=== PATIENT | male | born 1970 | race Caucasian/White ===

== ENCOUNTER 2024-09-03 08:44 | Day surgery (SDC) | payer OTHER, SELFPAY ==
[2024-08-29 07:36] VITALS: BMI 40.9
--- NOTE | 2024-08-30 14:41 | P.CONAN_ITS ---
Documented by User: Moriah Limon NP 08/30/24 14:42 HPI - Anesthesia Eval Consult details Narrative: 53yo M for Left Cataract Extraction IOL Insertion No previous cataract on record PMFSH Past Medical History Medical History Back pain Insomnia Sleep apnea Rhinitis medicamentosa HTN (hypertension) Nocturnal hypoxemia Diabetes Morbid obesity with BMI of 40.0-44.9, adult Hyperlipidemia LDL goal <100 Surgical History Surgical History Hx of cornea transplant Social History Social History Are you a primary personal care service provider to a significant other at home: No Do you presently have visiting nurse or other home services: No Patient Tobacco Use Status: Never used Tobacco Use of substances other than those prescribed or required for medical reasons: No Advance Directives: No Advance Directives Information Provided: Yes Advance Directives on File: No Recently lost weight without trying: No Eating poorly because of decreased appetite: No Nutrition Risks: No Nutritional Risk Meds Allergies Allergy/AdvReac Type Severity Reaction Status Date / Time dog dander Allergy Unknown Verified 09/03/24 09:32 Home Medications ?Medication ?Instructions ?Recorded ?Confirmed ?Last Taken ?Type Lactobacillus rhamnosus GG 10 1 cap PO DAILY 08/29/24 08/29/24 Unknown History billion cell-inulin 200 mg capsule ([facility] [place]) atorvastatin 20 mg tablet 20 mg PO QPM 08/29/24 08/29/24 Unknown History cetirizine 10 mg tablet 10 mg PO DAILY 08/29/24 08/29/24 Unknown History ciclopirox 8 % topical solution 1 appl topical DAILY 08/29/24 08/29/24 Unknown History diclofenac sodium 75 mg 75 mg PO BID 08/29/24 08/29/24 Unknown History tablet,delayed release diphenoxylate-atropine 2.5 1 tab PO QID PRN Diarrhea 08/29/24 08/29/24 Unknown History mg-0.025 mg tablet epinephrine 0.3 mg/0.3 mL 0.3 mg IM NEEDED anaphylaxis 08/29/24 08/29/24 Unknown History injection, auto-injector meclizine 25 mg tablet 25 mg PO TID PRN Dizziness 08/29/24 08/29/24 Unknown History metformin 500 mg tablet,extended 500 mg PO BID 08/29/24 08/29/24 Unknown History release 24 hr trazodone 50 mg tablet 50 - 100 mg PO BEDTIME 08/29/24 08/29/24 Unknown History triamcinolone acetonide 55 mcg 2 spray intranasal DAILY 08/29/24 08/29/24 Unknown History nasal spray aerosol Exam Height,Weight and Vital Signs: Height 5 ft 8 in Weight 122 kg Assessment and Plan Assessment Anesthesia Assessment: Chart Reviewed Documented by User: Cammy Oconnor MD 09/03/24 09:37 [facility] Past Medical History Medical History Back pain Insomnia Sleep apnea Rhinitis medicamentosa HTN (hypertension) Nocturnal hypoxemia Diabetes Morbid obesity with BMI of 40.0-44.9, adult Hyperlipidemia LDL goal <100 Family History Family history of problems with anesthesia: No Surgical History Surgical History Hx of cornea transplant History of Problems with Anesthesia: No Social History Social History Are you a primary personal care service provider to a significant other at home: No Do you presently have visiting nurse or other home services: No Patient Tobacco Use Status: Never used Tobacco Use of substances other than those prescribed or required for medical reasons: No Advance Directives: No Advance Directives Information Provided: Yes Advance Directives on File: No Recently lost weight without trying: No Eating poorly because of decreased appetite: No Nutrition Risks: No Nutritional Risk Meds Allergies Allergy/AdvReac Type Severity Reaction Status Date / Time dog dander Allergy Unknown Verified 09/03/24 09:32 Home Medications ?Medication ?Instructions ?Recorded ?Confirmed ?Last Taken ?Type Lactobacillus rhamnosus GG 10 1 cap PO DAILY 08/29/24 08/29/24 Unknown History billion cell-inulin 200 mg capsule ([facility] [place]) atorvastatin 20 mg tablet 20 mg PO QPM 08/29/24 08/29/24 Unknown History cetirizine 10 mg tablet 10 mg PO DAILY 08/29/24 08/29/24 Unknown History ciclopirox 8 % topical solution 1 appl topical DAILY 08/29/24 08/29/24 Unknown History diclofenac sodium 75 mg 75 mg PO BID 08/29/24 08/29/24 Unknown History tablet,delayed release diphenoxylate-atropine 2.5 1 tab PO QID PRN Diarrhea 08/29/24 08/29/24 Unknown History mg-0.025 mg tablet epinephrine 0.3 mg/0.3 mL 0.3 mg IM NEEDED anaphylaxis 08/29/24 08/29/24 Unknown History injection, auto-injector meclizine 25 mg tablet 25 mg PO TID PRN Dizziness 08/29/24 08/29/24 Unknown History metformin 500 mg tablet,extended 500 mg PO BID 08/29/24 08/29/24 Unknown History release 24 hr trazodone 50 mg tablet 50 - 100 mg PO BEDTIME 08/29/24 08/29/24 Unknown History triamcinolone acetonide 55 mcg 2 spray intranasal DAILY 08/29/24 08/29/24 Unknown History nasal spray aerosol Exam Airway Mallampati Class: III TM Dist: <=3cm Neck ROM: Full Heart: rrr Lungs: cta Assessment and Plan Assessment Anesthesia Assessment: Anesthesia Plan Discussed Final Anesthetic Review Family History of Problems with Anesthesia: No History of Problems with Anesthesia: No NPO: Yes ASA Class: III Final Preanesthetic Review: No Changes in Pt Med Stat, Meds/Allgs Chart Reviewed, Consent Obtained/Reviewed and Anes Risks/Benef Reviewed Patient Risk: Intermediate Procedure Risk: Low Anesthetic Plan Anesthetic Plan: MAC: Disposition: Standard PACU
[2024-09-03] MEDS: Tetracaine HCl/PF 0.5% Oph Sol 4 ML DROPS 1 DROP EYE-LEFT (09:43)
[2024-09-03] MEDS: Cyclopentolate 1 % Ophth Sol 2 ML DRPBTL 1 DROP EYE-LEFT ×3 (09:45→09:56)
[2024-09-03] MEDS: Tropicamide 1 % Ophth Sol 3 ML BTL 1 DROP EYE-LEFT ×3 (09:47→09:57)
[2024-09-03] MEDS: Ketorolac Tromethamine 0.5% Op 5 ML DROPS 1 DROP EYE-LEFT ×3 (09:48→09:59)
[2024-09-03] MEDS: Phenylephrine HCL 2.5% Oph SoL 2 ML BOTTLE 1 DROP EYE-LEFT ×3 (09:49→10:00)
[2024-09-03 09:55] VITALS: BP 128/91; PULSE 90; RESP 15; TEMP 36.6; O2SAT 93
[2024-09-03] MEDS: Lactated Ringers 500 ML 50 ML IV (10:00)
--- NOTE | 2024-09-03 10:21 | MHC.SHP ---
Pre-Procedural Eval Section A - 24 Hr Update-Section A only Date of Service: 09/03/24 The patient is an INPATIENT: No Changes since office visit: No Cold of Flu in the past 2 weeks, No New Medical Problems, No Changes in Medication and No Patient answered all questions The patient has been examined within 24 hours of the surgical procedure. The History & Physical has been completed within 30 days and I have reviewed it.: Yes Section B - Complete if H&P > 30 days Chief Complaint: Age-related nuclear cataract, left eye Allergies: Allergies Allergy/AdvReac Type Severity Reaction Status Date / Time dog dander Allergy Unknown Verified 09/03/24 09:32 Plan Diagnosis/Plan: Unchanged I have reviewed the history and physical and performed a pertinent physical examination on my patient. No changes have occurred unless specified. Time Spent With Patient Time: Total time managing care of this patient today ____ minutes.
--- NOTE | 2024-09-03 10:21 | HO.PNOPHT ---
Ophthalmology Procedure Procedure Date of Service: 09/03/24 Ophthalmology Viscoelastic: Healon Duet Dual Pack Pro Ophthalmology Lenses: IOL Acrysof MP - MA60AC (18.5) Procedure Notes: PREOPERATIVE DIAGNOSIS: Decreased visual acuity left eye secondary to cataract POSTOPERATIVE DIAGNOSIS: Same PROCEDURE: Left cataract extraction with intraocular lens insertion SURGEON: Yovany Pendleton M.D. ANESTHESIA: Topical/MAC ESTIMATED BLOOD LOSS: None COMPLICATIONS: None After obtaining informed consent, the patient was brought to the operation room suite and placed in the supine position. After adequate sedation per anesthesia, topical drops of Tetracaine were given to the left eye. The eye was then prepped and draped in the usual sterile fashion. The operating room microscope was then positioned over the operative eye and a lid speculum placed. A paracentesis was created. Viscoelastic was then instilled into the anterior chamber. A three plane incision was then created temporally, utilizing a 2.85 mm keratome. Capsulotomy forceps were then utilized to create a circular tear capsulotomy. Hydrodissection and hydrodelineation were carried out until adequate mobilization of the nucleus occurred. Phacoemulsification was then utilized to remove the dense central nucleus followed by removal of the cortical material utilizing the automated aspiration irrigation unit. Viscoat elastic was instilled into the posterior capsular bag followed by placement of a posterior chamber intraocular lens without difficulty. The residual Viscoat elastic was then removed utilizing the automated IA machine. The wound was check and found to be watertight. The patient tolerated the procedure well and the lid speculum was removed. Intracameral injection of Vigamox 0.1 mL followed by a subtenon injection of Kenalog-40 0.2 mL were administered. The patient will be seen in the a.m.
[2024-09-03 10:33] LABS: Glucose, Whole Blood 145 mg/dL (60-115)
[2024-09-03 10:42] VITALS: BP 131/86; PULSE 88; RESP 19; TEMP 37.1; O2SAT 95
[2024-09-03 10:57] VITALS: BP 143/91; PULSE 92; RESP 16; TEMP 37.1; O2SAT 95
== END 2024-09-03 10:58 | disposition home or self-care (01) ==
PROVIDERS: PCP Internal Medicine; Visit Provider Ophthalmology
PROC: (CPT 66985; principal; 2024-09-03 11:00)
DX: H25.12 Age-related nuclear cataract, left eye (principal); H52.4 Presbyopia; H04.123 Dry eye syndrome of bilateral lacrimal glands; H52.31 Anisometropia; H43.393 Other vitreous opacities, bilateral; H35.09 Other intraretinal microvascular abnormalities; G47.33 Obstructive sleep apnea (adult) (pediatric); E11.9 Type 2 diabetes mellitus without complications; I10 Essential (primary) hypertension; E78.5 Hyperlipidemia, unspecified; Z79.84 Long term (current) use of oral hypoglycemic drugs; Z79.899 Other long term (current) drug therapy
CPT/HCPCS: 66984; 82947; J2250; J3301; V2630

== ENCOUNTER 2024-09-17 07:37 | Day surgery (SDC) | payer OTHER, SELFPAY ==
[2024-08-29 07:43] VITALS: BMI 40.9
[2024-09-17 07:54] VITALS: BP 155/89; PULSE 87; RESP 20; TEMP 36.9; O2SAT 94
[2024-09-17] MEDS: Tetracaine HCl/PF 0.5% Oph Sol 4 ML DROPS 1 DROP EYE-RIGHT (08:01)
[2024-09-17] MEDS: Lactated Ringers 500 ML 50 ML IV (08:01)
[2024-09-17] MEDS: Tropicamide 1 % Ophth Sol 3 ML BTL 1 DROP EYE-RIGHT ×3 (08:02→08:05)
[2024-09-17] MEDS: Phenylephrine HCL 2.5% Oph SoL 2 ML BOTTLE 1 DROP EYE-RIGHT ×3 (08:02→08:05)
[2024-09-17] MEDS: Ketorolac Tromethamine 0.5% Op 5 ML DROPS 1 DROP EYE-RIGHT ×3 (08:02→08:05)
[2024-09-17] MEDS: Cyclopentolate 1 % Ophth Sol 2 ML DRPBTL 1 DROP EYE-RIGHT ×3 (08:02→08:05)
--- NOTE | 2024-09-17 08:02 | P.CONAN_ITS ---
Documented by User: Moriah Limon NP 09/13/24 14:36 HPI - Anesthesia Eval Consult details Narrative: 53yo M for Right Cataract Extraction IOL Insertion Left eye 09/03/24: [facility] 2 PMFSH Past Medical History Medical History (Updated 09/17/24 @ 07:57 by Gissell Rahman RN) Cataract Back pain Insomnia Sleep apnea Rhinitis medicamentosa HTN (hypertension) Nocturnal hypoxemia Diabetes Morbid obesity with BMI of 40.0-44.9, adult Hyperlipidemia LDL goal <100 Family History Family history of problems with anesthesia: No Surgical History Surgical History Hx of cornea transplant History of Problems with Anesthesia: No Social History Social History Are you a primary care management assistant to a significant other at home: No Do you presently have visiting nurse or other home services: No Patient Tobacco Use Status: Never used Tobacco Have you been hit, kicked, punched, or otherwise hurt by someone within the past year? If so, by whom?: No Are you DNR?: No Advance Directives: No Advance Directives Information Provided: Yes Advance Directives on File: No Recently lost weight without trying: No Eating poorly because of decreased appetite: No Nutrition Risks: No Nutritional Risk Meds Allergies Allergy/AdvReac Type Severity Reaction Status Date / Time dog dander Allergy Unknown Verified 09/03/24 09:32 Home Medications ?Medication ?Instructions ?Recorded ?Confirmed ?Last Taken ?Type Lactobacillus rhamnosus GG 10 1 cap PO DAILY 08/29/24 08/29/24 Unknown History billion cell-inulin 200 mg capsule ([facility] [place]) atorvastatin 20 mg tablet 20 mg PO QPM 08/29/24 08/29/24 Unknown History cetirizine 10 mg tablet 10 mg PO DAILY 08/29/24 08/29/24 Unknown History ciclopirox 8 % topical solution 1 appl topical DAILY 08/29/24 08/29/24 Unknown History diclofenac sodium 75 mg 75 mg PO BID 08/29/24 08/29/24 Unknown History tablet,delayed release diphenoxylate-atropine 2.5 1 tab PO QID PRN Diarrhea 08/29/24 08/29/24 Unknown History mg-0.025 mg tablet epinephrine 0.3 mg/0.3 mL 0.3 mg IM NEEDED anaphylaxis 08/29/24 08/29/24 Unknown History injection, auto-injector meclizine 25 mg tablet 25 mg PO TID PRN Dizziness 08/29/24 08/29/24 Unknown History metformin 500 mg tablet,extended 500 mg PO BID 08/29/24 08/29/24 Unknown History release 24 hr trazodone 50 mg tablet 50 - 100 mg PO BEDTIME 08/29/24 08/29/24 Unknown History triamcinolone acetonide 55 mcg 2 spray intranasal DAILY 08/29/24 08/29/24 Unknown History nasal spray aerosol Exam Height,Weight and Vital Signs: Height 5 ft 8 in Weight 122 kg Assessment and Plan Assessment Anesthesia Assessment: Chart Reviewed Final Anesthetic Review Family History of Problems with Anesthesia: No History of Problems with Anesthesia: No Documented by User: Chanel Mera DO 09/17/24 08:04 [facility] Past Medical History Medical History (Updated 09/17/24 @ 07:57 by Gissell Rahman RN) Cataract Back pain Insomnia Sleep apnea Rhinitis medicamentosa HTN (hypertension) Nocturnal hypoxemia Diabetes Morbid obesity with BMI of 40.0-44.9, adult Hyperlipidemia LDL goal <100 Family History Family history of problems with anesthesia: No Surgical History Surgical History Hx of cornea transplant History of Problems with Anesthesia: No Social History Social History Are you a primary care management assistant to a significant other at home: No Do you presently have visiting nurse or other home services: No Patient Tobacco Use Status: Never used Tobacco Have you been hit, kicked, punched, or otherwise hurt by someone within the past year? If so, by whom?: No Are you DNR?: No Advance Directives: No Advance Directives Information Provided: Yes Advance Directives on File: No Recently lost weight without trying: No Eating poorly because of decreased appetite: No Nutrition Risks: No Nutritional Risk Meds Allergies Allergy/AdvReac Type Severity Reaction Status Date / Time dog dander Allergy Unknown Verified 09/03/24 09:32 Home Medications ?Medication ?Instructions ?Recorded ?Confirmed ?Last Taken ?Type Lactobacillus rhamnosus GG 10 1 cap PO DAILY 08/29/24 08/29/24 Unknown History billion cell-inulin 200 mg capsule ([employer]) atorvastatin 20 mg tablet 20 mg PO QPM 08/29/24 08/29/24 Unknown History cetirizine 10 mg tablet 10 mg PO DAILY 08/29/24 08/29/24 Unknown History ciclopirox 8 % topical solution 1 appl topical DAILY 08/29/24 08/29/24 Unknown History diclofenac sodium 75 mg 75 mg PO BID 08/29/24 08/29/24 Unknown History tablet,delayed release diphenoxylate-atropine 2.5 1 tab PO QID PRN Diarrhea 08/29/24 08/29/24 Unknown History mg-0.025 mg tablet epinephrine 0.3 mg/0.3 mL 0.3 mg IM NEEDED anaphylaxis 08/29/24 08/29/24 Unknown History injection, auto-injector meclizine 25 mg tablet 25 mg PO TID PRN Dizziness 08/29/24 08/29/24 Unknown History metformin 500 mg tablet,extended 500 mg PO BID 08/29/24 08/29/24 Unknown History release 24 hr trazodone 50 mg tablet 50 - 100 mg PO BEDTIME 08/29/24 08/29/24 Unknown History triamcinolone acetonide 55 mcg 2 spray intranasal DAILY 08/29/24 08/29/24 Unknown History nasal spray aerosol Exam Exam Date and Time: 09/17/24 0800 Height,Weight and Vital Signs: Height 5 ft 8 in Weight 122 kg Vital Signs Temperature 98.5 F 09/17/24 07:54 Pulse Rate 87 09/17/24 07:54 Respiratory Rate 20 09/17/24 07:54 Blood Pressure 155/89 H 09/17/24 07:54 Pulse Oximetry 94 09/17/24 07:54 Oxygen Delivery Method Room Air 09/17/24 07:54 Temperature 98.5 F 09/17/24 07:54 Pulse Rate 87 09/17/24 07:54 Respiratory Rate 20 09/17/24 07:54 Blood Pressure 155/89 H 09/17/24 07:54 Pulse Oximetry 94 09/17/24 07:54 Oxygen Delivery Method Room Air 09/17/24 07:54 Airway Mallampati Class: II TM Dist: >3cm Neck ROM: Full Loose/Missing/Broken Teeth: Yes (multiple missing teeth but nothing loose) Heart: S1S2 Lungs: CTAB Assessment and Plan Assessment Anesthesia Assessment: Anesthesia Plan Discussed and Chart Reviewed Final Anesthetic Review Family History of Problems with Anesthesia: No History of Problems with Anesthesia: No NPO: Yes ASA Class: III Final Preanesthetic Review: No Changes in Pt Med Stat, Meds/Allgs Chart Reviewed, Consent Obtained/Reviewed and Anes Risks/Benef Reviewed Patient Risk: Intermediate Procedure Risk: Low Anesthetic Plan Anesthetic Plan: MAC: and Agree w/ Assess. and Plan Disposition: Standard PACU
[2024-09-17 08:13] LABS: Glucose, Whole Blood 133 mg/dL (60-115)
--- NOTE | 2024-09-17 08:50 | MHC.SHP ---
Pre-Procedural Eval Section A - 24 Hr Update-Section A only Date of Service: 09/17/24 The patient is an INPATIENT: No Changes since office visit: No Cold of Flu in the past 2 weeks, No New Medical Problems, No Changes in Medication and No Patient answered all questions The patient has been examined within 24 hours of the surgical procedure. The History & Physical has been completed within 30 days and I have reviewed it.: Yes Section B - Complete if H&P > 30 days Chief Complaint: Age-related nuclear cataract, right eye Allergies: Allergies Allergy/AdvReac Type Severity Reaction Status Date / Time dog dander Allergy Unknown Verified 09/03/24 09:32 Plan Diagnosis/Plan: Unchanged I have reviewed the history and physical and performed a pertinent physical examination on my patient. No changes have occurred unless specified. Time Spent With Patient Time: Total time managing care of this patient today ____ minutes.
--- NOTE | 2024-09-17 08:51 | P.PCNO_ITS ---
Ophthalmology Procedure Procedure Date of Service: 09/17/24 Ophthalmology Viscoelastic: Healon Duet Dual Pack Pro Ophthalmology Lenses: IOL Acrysof MP - MA60AC (10) Procedure Notes: PREOPERATIVE DIAGNOSIS: Decreased visual acuity right eye secondary to cataract POSTOPERATIVE DIAGNOSIS: Same PROCEDURE: Right cataract extraction with intraocular lens insertion SURGEON: Yovany Pendleton M.D. ANESTHESIA: Topical/MAC ESTIMATED BLOOD LOSS: None COMPLICATIONS: None After obtaining informed consent, the patient was brought to the operating room suite and placed in the supine position. After adequate sedation per anesthesia, topical drops of Tetracaine were given to the right eye. The eye was then prepped and draped in the usual sterile fashion. The operating room microscope was then positioned over the operative eye and a lid speculum placed. A paracentesis was created. Viscoelastic was then instilled into the anterior chamber. A three plane incision was then created temporally, utilizing a 2.85 mm keratome. Capsulotomy forceps were then utilized to create a circular tear capsulotomy. Hydrodissection and hydrodelineation were carried out until adequate mobilization of the nucleus occurred. Phacoemulsification was then utilized to remove the dense central nucl eus followed by removal of the cortical material utilizing the automated aspiration irrigation unit. Viscoelastic was instilled into the posterior capsular bag followed by placement of a posterior chamber intraocular lens without difficulty. The residual Viscoelastic was then removed utilizing the automated IA machine. The wound was checked and found to be watertight. The patient tolerated the procedure well and the lid speculum was removed. Intracameral injection of Vigamox 0.1 mL followed by a subtenon injection of Kenalog-40 0.2 mL were administered. The patient will be seen in the a.m.
[2024-09-17 09:17] VITALS: BP 159/100; PULSE 91; RESP 16; TEMP 36.6; O2SAT 94
[2024-09-17 09:32] VITALS: BP 150/95; PULSE 86; RESP 16; TEMP 37.1; O2SAT 95
== END 2024-09-17 09:35 | disposition home or self-care (01) ==
PROVIDERS: PCP Internal Medicine; Visit Provider Ophthalmology
PROC: (CPT 66985; principal; 2024-09-17 09:00)
DX: H25.11 Age-related nuclear cataract, right eye (principal); H52.4 Presbyopia; H18.0 Corneal pigmentations and deposits; H52.31 Anisometropia; H43.393 Other vitreous opacities, bilateral; H04.123 Dry eye syndrome of bilateral lacrimal glands; Z83.511 Family history of glaucoma; H35.09 Other intraretinal microvascular abnormalities; E11.9 Type 2 diabetes mellitus without complications; G47.33 Obstructive sleep apnea (adult) (pediatric); Z79.84 Long term (current) use of oral hypoglycemic drugs; Z79.899 Other long term (current) drug therapy
CPT/HCPCS: 66984; 82947; J2250; J3010; J3301; V2630